=== PATIENT | female | born 1990 | race Caucasian/White ===

== ENCOUNTER 2023-08-24 12:43 | Emergency (ER) | payer MEDICAID ==
[2023-08-24 13:13] VITALS: BP 157/95; PULSE 89
[2023-08-24] MEDS: Acetaminophen 500 MG Tab PO ONE (13:27)
== END 2023-08-24 13:40 ==
LOC: VM.ED 12:43
DX: J32.9 Chronic sinusitis, unspecified (principal)
CPT/HCPCS: 99283; A9270-GY

== ENCOUNTER 2024-02-04 14:04 | Emergency (ER) | payer MEDICAID ==
[2024-02-04 14:54] VITALS: BP 133/100; PULSE 92
[2024-02-04] MEDS: Diazepam 5 MG Tab PO ONE (15:47)
[2024-02-04] MEDS: Ketorolac 30 MG/ML SDV IM ONE (15:47)
== END 2024-02-04 16:29 | disposition home or self-care (01) ==
LOC: VM.ED 14:04 → SUPCPDRO 14:04 → VM.ED 16:29
DX: M62.830 Muscle spasm of back (principal); Z88.0 Allergy status to penicillin; Z91.09 Other allergy status, other than to drugs and biological substances; Z88.8 Allergy status to other drugs, medicaments and biological substances; Z79.899 Other long term (current) drug therapy; Z90.49 Acquired absence of other specified parts of digestive tract
CPT/HCPCS: 96372; 99283; A9270; J1885; 99284

== ENCOUNTER 2024-02-05 17:22 | Emergency (ER) | payer MEDICAID ==
[2024-02-05 18:57] LABS: BASOPHILS PERCENT AUTO 0.3 % (0.2-1.2); EOSINOPHILS ABSOLUTE AUTO 0.2 x10^3/uL (0.0-0.5); EOSINOPHILS PERCENT AUTO 1.9 % (0.0-4.0); HEMATOCRIT 41.2 % (33.0-47.0); HEMOGLOBIN 14.5 g/dL (12.0-16.0); IMMATURE GRAN ABSOLUTE AUTO 0.07 x10^3/uL (0.00-0.07); LYMPHOCYTES ABSOLUTE AUTO 2.8 x10^3/uL (1.0-4.8); LYMPHOCYTES PERCENT AUTO 29.8 % (25.0-50.0); MEAN CORPUSCULAR HGB CONC 35.2 g/dL (32.0-36.0); MEAN CORPUSCULAR VOLUME 93.8 fL (78.0-93.0); MONOCYTES ABSOLUTE AUTO 0.4 x10^3/uL (0.0-0.8); MONOCYTES PERCENT AUTO 4.5 % (2.0-11.0); NEUTROPHILS ABSOLUTE AUTO 5.9 x10^3/uL (1.8-7.7); NEUTROPHILS PERCENT AUTO 62.8 % (50.0-80.0); PLATELET COUNT,PLT 199 x10^3/uL (130-400); RED BLOOD CELL COUNT 4.39 x10^6/uL (4.00-5.50); WHITE BLOOD CELL COUNT,WBC 9.4 x10^3/uL (4.0-10.0)
[2024-02-05 19:02] LABS: APPEARANCE,URINE CLEAR (CLEAR); BILIRUBIN,URINE NEGATIVE (NEGATIVE); COLOR,URINE YELLOW (YELLOW); GLUCOSE,URINE >=1000 mg/dL (NEGATIVE); KETONES,URINE 15 mg/dL (NEGATIVE); LEUKOCYTE ESTERASE,URINE SMALL (NEGATIVE); NITRITE,URINE NEGATIVE (NEGATIVE); OCCULT BLOOD,URINE NEGATIVE (NEGATIVE); PROTEIN,URINE NEGATIVE (NEGATIVE); UROBILINOGEN,URINE 0.2 EU/dL (0.2)
[2024-02-05 19:04] VITALS: BP 113/63; PULSE 96
[2024-02-05 19:08] LABS: RBC,URINE 0-5 /HPF (NOT SEEN); SQUAMOUS EPITHELIAL CELLS,UR FEW /HPF (NOT SEEN)
[2024-02-05 19:09] LABS: AMORPHOUS SEDIMENT,URINE NOT SEEN; BACTERIA,URINE FEW /HPF (NOT SEEN); MUCUS,URINE OCCASIONAL /LPF (NOT SEEN)
[2024-02-05 19:14] LABS: A/G RATIO 0.89; ALANINE AMINOTRANSFERASE,ALT 37 U/L (14-59); ALBUMIN 3.4 g/dL (3.4-5.0); ALKALINE PHOSPHATASE 81 U/L (46-116); ANION GAP 15.2 mmol/L (5-15); ASPARTATE AMNIOTRANSFERASE,AST 26 U/L (15-37); BILIRUBIN TOTAL 0.4 mg/dL (0.2-1.0); BLOOD UREA NITROGEN,BUN 15 mg/dL (7-18); CARBON DIOXIDE,CO2 26 mmol/L (21-32); CHLORIDE,CL 102 mmol/L (98-107); ESTIMATED GFR 77 mL/min (>=60); GLUCOSE RANDOM 284 mg/dL (70-99); POTASSIUM,K 4.2 mmol/L (3.5-5.1); PROTEIN TOTAL,TP 7.2 g/dL (6.4-8.2); SODIUM,NA 139 mmol/L (136-145)
[2024-02-05] MEDS: Ketorolac 30 MG/ML SDV IM ONE (19:48)
[2024-02-05] MEDS: fentaNYL 100 MCG/2 ML SDV SUBCUT ONE (20:50)
[2024-02-05] MEDS: fentaNYL 100 MCG/2 ML SDV ONE (20:55)
[2024-02-05] MEDS: Take Home: predniSONE 20 MG, 2 Tab Pack PO ONE (20:59)
[2024-02-05] MEDS: Take Home: Acetaminophen/HYDROcodone 325-5 MG, 5 Tab Pack PO ONE (20:59)
== END 2024-02-05 21:42 | disposition home or self-care (01) ==
LOC: VM.ED 17:22
DX: M54.42 Lumbago with sciatica, left side (principal); E11.9 Type 2 diabetes mellitus without complications; F17.210 Nicotine dependence, cigarettes, uncomplicated; Z90.49 Acquired absence of other specified parts of digestive tract; Z79.899 Other long term (current) drug therapy; Z88.0 Allergy status to penicillin; Z88.1 Allergy status to other antibiotic agents; Z88.5 Allergy status to narcotic agent; Z91.048 Other nonmedicinal substance allergy status
CPT/HCPCS: 36415; 72070; 72100; 72200; 72220; 80053; 81001; 85025; 87086; 96372; 99283; A9270; J1885; J3010; J7512

== ENCOUNTER 2024-04-05 10:13 | Emergency (ER) | payer MEDICAID ==
[2024-04-05 10:35] VITALS: BP 130/79; PULSE 115
== END 2024-04-05 11:45 | disposition home or self-care (01) ==
LOC: VM.ED 10:13
DX: B34.9 Viral infection, unspecified (principal); J40 Bronchitis, not specified as acute or chronic; E11.9 Type 2 diabetes mellitus without complications; F17.210 Nicotine dependence, cigarettes, uncomplicated; Z90.49 Acquired absence of other specified parts of digestive tract; Z79.899 Other long term (current) drug therapy; Z79.4 Long term (current) use of insulin; Z88.0 Allergy status to penicillin; Z88.1 Allergy status to other antibiotic agents; Z88.6 Allergy status to analgesic agent; Z91.048 Other nonmedicinal substance allergy status
CPT/HCPCS: 82947; 87428-QW; 99283

== ENCOUNTER 2024-09-23 10:29 | Emergency (ER) | payer MEDICAID ==
[2024-09-23 10:40] VITALS: BP 123/77; PULSE 95
[2024-09-23] MEDS: Diphtheria,Pertussis(Acell),Tetanus Vaccine 0.5 ML Syringe IM ONE (11:01)
== END 2024-09-23 11:09 | disposition home or self-care (01) ==
LOC: SUPCPDRO 10:29 → VM.ED 10:29
DX: S61.412A Laceration without foreign body of left hand, initial encounter (principal); E11.9 Type 2 diabetes mellitus without complications; F17.210 Nicotine dependence, cigarettes, uncomplicated; Z23 Encounter for immunization; Z79.899 Other long term (current) drug therapy; Z79.4 Long term (current) use of insulin; Z88.5 Allergy status to narcotic agent; Z91.048 Other nonmedicinal substance allergy status; Z88.0 Allergy status to penicillin; Z88.1 Allergy status to other antibiotic agents; W26.8XXA Contact with other sharp object(s), not elsewhere classified, initial encounter
CPT/HCPCS: 12001; 90471; 90715; 99282-25

== ENCOUNTER 2024-11-12 14:39 | Emergency (ER) | payer MEDICAID ==
[2024-11-12 15:31] VITALS: BP 125/75; PULSE 94
[2024-11-12] MEDS: Take Home: Clindamycin HCl 150 MG Cap, 6 Cap Pack PO ONE (15:37)
== END 2024-11-12 15:40 | disposition home or self-care (01) ==
LOC: VM.ED 14:39
DX: N61.0 Mastitis without abscess (principal); Z79.899 Other long term (current) drug therapy; Z88.1 Allergy status to other antibiotic agents; Z88.5 Allergy status to narcotic agent; Z88.0 Allergy status to penicillin; Z91.048 Other nonmedicinal substance allergy status
CPT/HCPCS: 99283; A9270